=== PATIENT | male | born 1965 | race Caucasian/White ===

== ENCOUNTER 2025-06-29 14:01 | Emergency (ER) | payer OTHER ==
[2025-06-29] MEDS: Diphtheria,Pertussis(Acell),Tetanus Vaccine 0.5 ML Syringe IM ONE (15:23)
[2025-06-29] MEDS: Bacitracin Oint 1 GM U/D Packet TOP ONE (15:23)
== END 2025-06-29 15:47 | disposition home or self-care (01) ==
LOC: JP.ED 14:01
DX: S61.411A Laceration without foreign body of right hand, initial encounter (principal); I10 Essential (primary) hypertension; E78.00 Pure hypercholesterolemia, unspecified; Z79.899 Other long term (current) drug therapy; Z23 Encounter for immunization; Z88.5 Allergy status to narcotic agent; Z88.8 Allergy status to other drugs, medicaments and biological substances; W26.8XXA Contact with other sharp object(s), not elsewhere classified, initial encounter
CPT/HCPCS: 12002; 90471; 90715; 99282-25